=== PATIENT | female | born 1980 | race Caucasian/White ===

== ENCOUNTER 2016-09-22 12:11 | Day surgery (SDC) | payer OTHER ==
[~2016-09-22] VITALS: Ht 162.6 cm; Wt 75.3 kg
[~2016-09-22 12:11] MED LIST: 0.9% Sodium Chloride 1,000 ML IV PRN; CYCL10TA9 PO; LORA1TAB PO; METO-301 PO; PANT40TA2 PO; Sodium Chloride LOK Flush 10 mL Syringe IV PRN; fentaNYL-PF 50 mCg/mL 2 mL Inj IVPUSH PRN
[2016-09-22 13:15] VITALS: BP 102/67; PULSE 60; RESP 14; O2SAT 100
[2016-09-22] MEDS ORDERED: BIRTH CONTROL PO (13:15)
[2016-09-22 13:53] VITALS: BP 107/61; PULSE 77; RESP 16; O2SAT 100
[2016-09-22 14:03] VITALS: BP 106/59; PULSE 69; RESP 16; O2SAT 100
--- NOTE | 2016-09-22 14:18 | ENDO ---
[address] [address] ENDOSCOPY PROCEDURE PATIENT: YI ÁLVAREZ : 1980 MR#: [id number] ADMIT: 09/22/2016 JOB ID: [id number] PROCEDURE: Esophagogastroduodenoscopy. INDICATION: Epigastric pain. The patient's ASA classification is one. Mallampati score is one. MEDICATIONS: 1. Versed 8 mg. 2. Fentanyl 100 mcg. INSTRUMENT USED: GIF H 180 J. PROCEDURE DETAILS: After informed consent was obtained, the patient was brought into the GI suite, where she was placed on oxygen via nasal cannula and monitored with continuous pulse oximeter, telemetry, and blood pressure monitoring. A time-out was performed; then, she was placed in the left lateral decubitus position and medications were administered for sedation. A bite block was placed. The standard esophagogastroduodenoscopy scope was then inserted through the bite block and advanced under direct visualization to the second portion of the duodenum without difficulty. FINDINGS: 1. Normal-appearing duodenal bulb, first and second portion. Multiple random biopsies were obtained. 2. Normal-appearing pylorus. 3. In the antrum and body of the stomach mild erythema suggestive of mild gastritis. Multiple random biopsies were obtained. 4. Retroflexed views in the gastric body revealed a normal-appearing cardia and fundus. 5. The GE junction was regular at 40 cm. 6. Normal appearing esophagus. IMPRESSION: Mild gastritis, otherwise normal exam to second portion of duodenum. No findings to explain patient's abdominal pain. RECOMMENDATIONS: 1. Await biopsy results. 2. Follow up in GI Clinic. 3. Continue PPI daily. COMPLICATIONS: None. ESTIMATED BLOOD LOSS: Less than 5 mL.
--- NOTE | 2016-09-23 15:31 | PATH ---
SURGICAL PATHOLOGY Attending Physician:Willie Gómez CASE STATUS: Signed Out PATIENT NAME: YI ÁLVAREZ PID: [id number] : 1980 DATE COLLECTED:09/22/2016 19:51 SPECIMEN: 1: Duodenum, Biopsy 2: Gastric, Biopsy CLINICAL HISTORY: 1). DUODENAL 2). GASTRIC FINAL DIAGNOSIS: 1.DUODENAL BIOPSY: DUODENAL MUCOSA WITH NO DIAGNOSTIC ALTERATIONS. Negative for inflammation, celiac, dysplasia and malignancy. 2.GASTRIC BIOPSY: ANTRAL AND BODY-TYPE MUCOSA WITH NO DIAGNOSTIC ALTERATIONS. Negative for Helicobacter organisms. Negative for intestinal metaplasia. Negative for dysplasia and malignancy. ICD10 code R10.13 GROSS DESCRIPTION: The specimen is received in two formalin filled containers labeled with the patient's name. 1). The specimen is sublabeled "duodenal" and consists of multiple portions of tissue which aggregate to 0.5 x 0.5 x 0.2 CM. The specimen is entirely submitted in cassette 1A. 2). The specimen is sublabeled "gastric" and consists of 3 portions of tissue which aggregate to 0.4 x 0.4 x 0.3 CM. The specimen is entirely submitted in cassette 2A. 09/22/2016 [facility] MICRO DESCRIPTION: See diagnosis. ICD-9 CODES: CPT CODES: 1: 08161 2: 79027 Electronically Signed Out Radha Yin MD [facility] [address], [place] [address] Technical component performed at [facility], [facility] [address], [place], [address]
== END 2016-09-22 23:59 | disposition home or self-care (01) ==
LOC: END 12:11
PROVIDERS: ATTEND Internal Medicine Gastroenterology
DX: K29.70 Gastritis, unspecified, without bleeding (principal); F17.210 Nicotine dependence, cigarettes, uncomplicated; Z87.11 Personal history of peptic ulcer disease; K58.1 Irritable bowel syndrome with constipation
CPT/HCPCS: 43239; G0500; J2250; J7030

== ENCOUNTER 2017-05-27 16:29 | Emergency (ER) | payer OTHER ==
[~2017-05-27 16:29] MED LIST changes: -0.9% Sodium Chloride 1,000 ML IV PRN; +BIRTH CONTROL PO; -LORA1TAB PO; -METO-301 PO; -Sodium Chloride LOK Flush 10 mL Syringe IV PRN; -fentaNYL-PF 50 mCg/mL 2 mL Inj IVPUSH PRN
== END 2017-05-27 17:25 | disposition left against medical advice (07) ==
LOC: SED 16:29
DX: R10.9 Unspecified abdominal pain (principal); Z53.21 Procedure and treatment not carried out due to patient leaving prior to being seen by health care provider

== ENCOUNTER 2017-05-29 09:48 | Emergency (ER) | payer OTHER ==
[~2017-05-29] VITALS: Ht 162.6 cm; Wt 61.8 kg
[2017-05-29 09:54] VITALS: BP 115/77; PULSE 61; RESP 14; O2SAT 100
[2017-05-29] MEDS ORDERED: 0.9% Sodium Chloride 1,000 ML IV ONE (10:30)
--- NOTE | 2017-05-29 10:34 | ED.REPORT ---
HPI-Chest Pain Under 40 Date of Service May 29, 2017 ED Provider: Rashad Harvey MD Patient is a 37 year old female who presents to the ED complaining of dizziness onset earlier today. Associated symptoms include lightheadedness, intermittent chest pressure and a decreased heart rate. She reports that when she took her heart rate she felt her heart "skip and then lunge forward" and her rate was 44. The patient denies shortness of breath, nausea, vomiting, syncope, neck pain , back pain or arm pain. Patient reports that she felt more lightheaded after she stood up from being in the car. She went to see her primary care physician, where the triage nurse took her heart rate and told her that it was "irregular" and that her breathing was "shallow". The patient states that she notices with the chest heaviness that occasionally she'll need to take a deep breath. While at [facility] two days ago she noticed her heart rate drop on the monitor but when she told the nurse, she was told it was due to the patient having a "sad thought ". The patient was given Dicyclomine for her abdominal pain at [facility]. She also reports that she recently stopped taking her supplements including Calcium, probiotics, a multi-vitamin and Joint Flex because her stomach pain had returned. Nursing Notes Stated Complaint: POSSIBLE HEART ISSUES/SENT BY Chief Complaint: Dysrhythmia/Cardiac Nursing Notes Reviewed: Yes Allergies: Coded Allergies: Penicillins (Verified Allergy, Severe, Rash, N & V, 05/29/17) doxycycline (Verified Allergy, Severe, GI Upset, Hives, 05/29/17) naproxen (Verified Allergy, Severe, GI Upset, Hives, 05/29/17) iodine (Verified Allergy, Mild, BLISTERS, 05/29/17) amoxicillin (Verified Allergy, Unknown, Hives, 05/29/17) Scheduled ([ Control]) 1 DOSE PO DAILY Pantoprazole DR (Protonix) 40 Mg Tablet 40 MG PO DAILY Scheduled PRN Cyclobenzaprine (Cyclobenzaprine) 10 Mg Tablet 10 MG PO HS PRN PRN Spasm General Time Seen by : 10:09 Chief Complaint Other (dizziness) Hx Obtained From: Patient Arrived By: Walk-in Sudden in Onset?: Yes Onset Occurred: 1 - 4 hours ago Symptom Duration: Since onset Location: : Substernal Quality: Heaviness, Pressure Radiation: : Does not radiate Severity: Current: No pain currently Severity: Maximum: Mild Recent Healthcare: Recent doctor visit Similar Sx Previous: No Past Medical History Past Medical History H. pylori Gastric ulcers Past Surgical History Reports: Smoking History Current Every Day Smoker Social History Alcohol Use: "Social" Drug Use: THC Ambulatory Status Independent Review of Systems Constitutional: Denies: Chills, Fever Respiratory: Denies: Non-productive cough, Shortness of breath Cardiovascular: Reports: Chest pain, Palpitations GI: Denies: Nausea, Vomiting Musculoskeletal: Denies: Back pain, Extremity pain, Neck pain Neurologic: Reports: Dizziness, Lightheaded, Denies: Syncope Complete sys rev & neg: except as marked. Physical Exam Initial Vital Signs Vital Signs (First) Date Time Temp Pulse Resp B/P Pulse Ox O2 Delivery O2 Flow Rate FiO2 05/29/17 09:54 36.7 61 14 115/77 100 Room Air Initial VS: Reviewed General/Constitutional: Awake, Alert, No acute distress Respiratory / Chest: Atraumatic, Breath sounds NL, Breath sounds = bilat, No respiratory distress Cardiovascular: Heart rate NL, Regular rhythm, Heart sounds NL, No murmurs Neck: Atraumatic, Supple Abdomen: Atraumatic, Soft, Non-tender Lower Extremity / Pelvis / MS: Atraumatic, No edema Skin: Atraumatic, Color NL, No rash, Warm, Dry Neurologic: Oriented X3, Speech NL Psychiatric: Affect NL, Mood NL Head / Eyes: Atraumatic, Normocephalic, PERRL, EOMI Upper Extremity / MS: Atraumatic, Full range of motion Interpretation & Diagnostics Lab Results Interpretation Result Diagram: 05/29/17 1045 05/29/17 1045 Test 05/29/17 10:45 White Blood Count 4.7th/mm3 (3.8-10.1) Red Blood Count 5.04mil/mm3 (3.90-5.20) Hemoglobin 13.7g/dL (12.0-15.6) Hematocrit 40.9% (35.0-46.0) Mean Corpuscular Volume 81.2fL (81-100) Mean Corpuscular Hemoglobin 27.2pg (27.0-35.0) Mean Corpuscular Hemoglobin Concent 33.5% (32.0-37.0) Red Cell Distribution Width 13.7% (12.3-15.4) Platelet Count 169bil/L (150-400) Neutrophils (%) (Auto) 52.2% (40-74) Lymphocytes (%) (Auto) 40.7% (14-46) Monocytes (%) (Auto) 4.6% (4-12) Eosinophils (%) (Auto) 1.9% (0-5) Basophils (%) (Auto) 0.6% (0-3) Sodium Level 138mEq/L (134-144) Potassium Level 3.8mEq/L (3.5-5.2) Chloride Level 102mEq/L (97-108) Carbon Dioxide Level 21mmol/L (18-29) Blood Urea Nitrogen 12mg/dL (6-20) Creatinine 0.83mg/dL (0.57-1.00) Estimat Glomerular Filtration Rate 112mL/min (>59) Glucose Level 95mg/dL (60-99) Calcium Level 8.8mg/dL (8.5-10.1) Magnesium Level 2.0mg/dL (1.6-2.6) Total Bilirubin 0.4mg/dL (0.0-1.2) Aspartate Amino Transf (AST/SGOT) 16U/L (0-50) Alanine Aminotransferase (ALT/SGPT) 11U/L (0-32) Alkaline Phosphatase 47U/L (25-150) Troponin T 0.010ug/L (0.0-0.011) Total Protein 7.2g/dL (6.4-8.4) Albumin 4.2g/dL (3.4-5.0) ECG Interpretation ECG Interpretation: no ST, T changes Q waves in V1 and V3, unchanged from previous EKG Time: 10:08 Normal ECG Interpretation: Normal rate, Normal sinus rhythm X-Ray Chest Interpretation Chest Xray Interpretation: IMPRESSION: No acute pulmonary process. Dictated by: Mkiaela Boyd M.D. on 05/29/2017 at 11:00 Approved by: Mikaela Boyd M.D. on 05/29/2017 at 11:00 View: Portable, 1 view Interpretation / Wet Read by: Interpret - Radiologist Re-Eval/Medical Decision Med Decision/Clinical Course 37-year-old female presenting with palpitations and lightheadedness. She was recently started on dicyclomine. Her vital signs are stable here. EKG is reassuring. Labs are unremarkable. Symptoms may related to her dicyclomine. She did have some PVCs on monitor. She is asymptomatic here. Recommend she discontinue her dicyclomine. Follow-up with primary doctor. Return precautions given. Re-Evaluation/Progress : Time of Eval: 12:04 Re-Evaluation/Progress Note: Discussed results and plan for discharge. Patient understands and agrees to plan. All questions were addressed. Counseled Regarding: Diagnosis, Lab results, Need for follow-up, When/why to return to ED Discharge & Departure Primary Impression: Lightheaded Additional Impression: Heart palpitations Disposition: Home Discharge Condition All VS Reviewed: Yes Condition: Stable Patient Instructions: Palpitations (ED) Additional Instructions: Your chest X-ray, EKG and labs were all normal and reassuring. Monitoring your heart rhythm did show some premature beats, which could be related to your medication. Be sure to drink plenty of fluids and rest It is possible that the Dicyclomine is causing your symptoms. I recommend stopping this medication. Follow up with your primary care physician regarding your medications. You may also consider following up with a business planning manager. Return to the emergency department if you develop any new or concerning symptoms including chest pain, difficulty breathing or fainting. Referrals: Radha Mc MD Attestation Portions of this note were transcribed by Evelyn Dotson. I, Dr. Harvey personally performed the history, physical exam and medical decision-making; I reviewed and confirmed the accuracy of the information in the transcribed note. Signed by: Iris Corona, 05/29/17. Rashad Harvey MD May 29, 2017 10:34 Vianca Dotson May 29, 2017 10:38
--- NOTE | 2017-05-29 11:02 | DRSVH ---
PROCEDURE: X-RAY CHEST ONE VIEW, PORTABLE ([id number]) INDICATIONS: dysrhythmia TECHNIQUE: One view of the chest was acquired. COMPARISON: [facility], CR, XR CHEST 1VW (PORTABLE), 02/17/2016, 20:26. FINDINGS: Surgical changes and devices: None. Lungs and pleura: No pleural effusions or pneumothorax. Lungs are clear. Mediastinum: Mediastinal contours appear normal. Heart size is normal. Bones and chest wall: No suspicious bony lesions. Overlying soft tissues appear unremarkable. IMPRESSION: No acute pulmonary process. Dictated by: Mikaela Boyd M.D. on 05/29/2017 at 11:00 Approved by: Mikaela Boyd M.D. on 05/29/2017 at 11:00
[2017-05-29 11:03] LABS: BASOPHILS % (AUTO) 0.6 % (0-3); EOSINOPHILS % (AUTO) 1.9 % (0-5); MONOCYTES % (AUTO) 4.6 % (4-12); Mean Corpuscular Hemoglobin 27.2 pg (27.0-35.0); Mean Corpuscular Volume 81.2 fL (81-100); NEUTROPHILS % (AUTO) 52.2 % (40-74); Platelet Count 169 bil/L (150-400)
[2017-05-29 11:20] LABS: TROPONIN T 0.01 ug/L (0.0-0.011)
[2017-05-29 11:25] VITALS: BP 110/73; PULSE 53; RESP 16; O2SAT 100
[2017-05-29 12:39] VITALS: BP 112/50; PULSE 79; RESP 14; O2SAT 100
== END 2017-05-29 12:40 | disposition home or self-care (01) ==
LOC: SED 09:48
DX: R42 Dizziness and giddiness (principal); R00.2 Palpitations; R07.89 Other chest pain; F17.200 Nicotine dependence, unspecified, uncomplicated; Z88.0 Allergy status to penicillin; Z88.1 Allergy status to other antibiotic agents; Z88.8 Allergy status to other drugs, medicaments and biological substances
CPT/HCPCS: 36415; 71010; 80053; 83735; 84484; 85025; 93005; 99285; J7030